=== PATIENT | female | born 1980 | race American Indian/Alaskan Native ===

== ENCOUNTER 2016-12-24 06:03 | Day surgery (SDC) | payer OTHER ==
[2016-12-16 15:44] LABS: Bilirubin,Urine NEG (Negative); Blood,Urine LG (Negative); Ketones,Urine NEG (Negative); Leukocyte Esterase,Urine TR (Negative); Mucus,Urine 3+ /HPF; Nitrite,Urine NEG (Negative); Urobilinogen,Urine < 2.0 mg/dL (<2.0)
[2016-12-16 15:45] LABS: RBC,Urine > 182.0 /HPF (0.0-6.0)
[2016-12-16 15:51] LABS: Alanine Aminotransferase 19 units/L (7-56); Albumin 3.9 g/dL (3.9-5); Albumin/Globulin Ratio 1.2 %; Alkaline Phosphatase 54 units/L (35-129); Anion Gap 18 mmol/L; BUN/Creatinine Ratio 13.33; Basophils % (Auto) 0.4 % (0.0-1.8); Blood Urea Nitrogen 8 mg/dL (7-17); Calcium 9.1 mg/dL (8.4-10.2); Carbon Dioxide 25 mmol/L (22-30); Chloride 103.3 mmol/L (98-107); Eosinophils % (Auto) 0.3 % (0.0-4.3); Glucose 77 mg/dL (65-100); Hematocrit 37.2 % (30.3-42.9); Hemoglobin 12.2 gm/dl (10.1-14.3); Mean Corpuscular HGB Conc 33 % (30-34); Mean Corpuscular Hemoglobin 28 pg (28-32); Mean Corpuscular Volume 85 fl (79-97); Platelet Count 225 K/mm3 (140-440); Red Blood Count 4.36 M/mm3 (3.65-5.03); Red Cell Distribution Width 15.8 % (13.2-15.2); Sodium 142 mmol/L (137-145); Total Protein 7.2 g/dL (6.3-8.2); White Blood Count 5.5 K/mm3 (4.5-11.0)
[2016-12-24] MEDS ORDERED: ANCEF/STERILE WATER 2 GM/20 ML IV NR (07:00)
[2016-12-24] MEDS ORDERED: NACL BACTERIOSTATIC INFILTRATI ONE (07:02)
--- NOTE | 2016-12-24 07:15 | Anesthesia Day of Surgery ---
Anesthesia Day of Surgery - Day of Surgery Patient Examined: Yes Patient H&P Reviewed: Yes Patient is NPO: Yes
--- NOTE | 2016-12-24 07:15 | Anesthesia Consultation ---
Anesthesia Consult and Med Hx Date of service: 12/24/16 - Airway Anesthetic Teeth Evaluation: Good ROM Head & Neck: Adequate Mental/Hyoid Distance: Adequate Mallampati Class: Class II Intubation Access Assessment: Probably Good - Pulmonary Exam CTA: Yes - Cardiac Exam Cardiac Exam: RRR - Pre-Operative Health Status ASA Pre-Surgery Classification: ASA2 Proposed Anesthetic Plan: General - Pulmonary Hx Respiratory Symptoms: Yes (history of PE in 2013) Hx Sleep Apnea: Yes (Uses cpap) - Cardiovascular System Hx Hypertension: No - Central Nervous System Hx Psychiatric Problems: No - Gastrointestinal Hx Gastroesophageal Reflux Disease: Yes - Hematic Hx Anemia: Yes - Other Systems Hx Alcohol Use: Yes (occas) Hx Substance Use: No Hx Cancer: No
[2016-12-24] MEDS ORDERED: SUBLIMAZE ONE (07:18)
[2016-12-24] MEDS ORDERED: DIPRIVAN 10 MG/ML IV ONE (07:18)
[2016-12-24] MEDS ORDERED: XYLOCAINE MPF 2% ONE (07:18)
[2016-12-24] MEDS ORDERED: SILVER NITRATE TP ONE (07:23)
[2016-12-24] MEDS: LACTATED RINGERS 1,000 ML IV SCH ×2 (07:47→10:22)
[2016-12-24] MEDS ORDERED: PERCOCET 5/325 PO PRN (08:00)
[2016-12-24] MEDS ORDERED: PEPCID PO NR (08:00)
[2016-12-24] MEDS ORDERED: VERSED IV NR (08:00)
[2016-12-24] MEDS ORDERED: NACL 0.9% IR ONE (08:30)
[2016-12-24] MEDS ORDERED: MONSEL'S TP ONE ×2 (08:45→08:46)
[2016-12-24] MEDS ORDERED: TORADOL ONE (09:06)
--- NOTE | 2016-12-24 09:10 | Short Stay Summary ---
Short Stay Documentation Date of service: 12/24/16 - History H&P: obtained from office - Allergies and Medications Current Medications: Allergies No Known Allergies Allergy (Verified 12/24/16 06:37) Home Medications Medication Instructions Recorded Confirmed Last Taken Type Omeprazole (Nf) [PriLOSEC (Nf)] 40 mg PO PRN PRN 07/28/16 12/24/16 2 Weeks Ago History Rivaroxaban [Xarelto] 20 mg PO DAILY 07/28/16 12/24/16 12/21/16 History Active Medications Famotidine (Pepcid) 20 mg PO PREOP NR Stop: 12/24/16 14:00 Last Admin: 12/24/16 07:46 Dose: 20 mg Hydromorphone HCl (Dilaudid) 0.5 mg IV Q10MIN PRN PRN Reason: Pain , Severe (7-10) Stop: 12/24/16 15:00 Lactated Ringer's (Lactated Ringers) 1,000 mls @ 100 mls/hr IV DIRECT RIRI Last Admin: 12/24/16 07:47 Dose: 100 mls/hr Midazolam HCl (Versed) 2 mg IV PREOP NR Stop: 12/24/16 23:59 Last Admin: 12/24/16 07:50 Dose: 2 mg Oxycodone/Acetaminophen (Percocet 5/325) 1 tab PO ONCE PRN PRN Reason: Pain, Moderate (4-6) Stop: 12/24/16 15:00 - Brief post op/procedure progress note Date of procedure: 12/24/16 Pre-op diagnosis: menstrual-induced anemia, AUB, dysmennorhea Post-op diagnosis: same Procedure: eua, hysteroscopy, D&C, novasure endometrial ablation Anesthesia: GETA Findings: 10 cm uterus, normal cavity, bilateral ostia visualized, proliferative appearing endometrium Surgeon: SALONI SAMAYOA Estimated blood loss: minimal Pathology: list (endometrial currettings) Specimen disposition: to lab Condition: stable - Disposition Condition at discharge: Good Disposition: DC-01 TO HOME OR SELFCARE Short Stay Discharge Plan Follow up with: ORTEGA KAN [employer] SELECTOR [Primary Care Provider] - 7 Days
[2016-12-24] MEDS: DILAUDID IV PRN ×2 (09:50→10:10)
--- NOTE | 2016-12-24 10:19 | Post Anesthesia Evaluation ---
- Post Anesthesia Evaluation Patient Participated: Yes Airway Patent: Yes Stable Respiratory Function: Yes Nausea/Vomiting: No Temp > 96.8F: Yes Pain Manageable: Yes Adequeate Hydration: Yes Anesthesia Complications: No Block Receding Appropriately: Not Applicable Patient on Ventilator: No
--- NOTE | 2016-12-24 10:20 | Operative Report ---
PREOPERATIVE DIAGNOSES: 1. Menometrorrhagia. 2. Dysmenorrhea. 3. Completed fertility. POSTOPERATIVE DIAGNOSES: 1. Menometrorrhagia. 2. Dysmenorrhea. 3. Completed fertility. PROCEDURE: EUA, hysteroscopy, D and C., NovaSure ablation. ANESTHESIA: General. SURGEON: Joi Wylie MD APPLICATION SOFTWARE ENGINEER: None. ESTIMATED BLOOD LOSS: Minimal. SPECIMEN: Endometrial curettings (sent to lab). Please make a note that the NovaSure rep was present for the entire case. INDICATIONS: The patient is a 36-year-old -[place]yp[place] female with abnormal uterine bleeding associated with iron deficiency anemia, pelvic pain, dysmenorrhea, dyspareunia, refractory to medical management. She has completed childbearing and desires an endometrial ablation. She is being brought to the OR today for an EUA, hysteroscopy, D and C, NovaSure endometrial ablation. DESCRIPTION OF PROCEDURE: The patient brought to the operating room where general anesthesia was administered without difficulty. She was prepared and draped in usual sterile fashion, positioned in dorsal lithotomy position. Eaton catheter was placed in the bladder. A speculum was placed in the vagina. A single tooth tenaculum was applied to the anterior lip of the cervix. The uterus sounded to 10 cm. The cervix was gently dilated to 25 mm. Hysteroscopy was performed with the findings noted above. She had a normal appearing uterus with proliferative appearing endometrium. Her bilateral tubal ostia were visualized. There were no masses noted. The cervical length was noted to be approximately 4. The other dimensions noted were cavity with a 3.7, power 125 W, cavity length was 6.0. The NovaSure was placed in the uterus per the chaplain's instructions and activated accordingly with a treatment time of 1.13 seconds. The cavity was noted to be intact, with no perforation prior to the procedure. There were no complications. [facility]# [id number] STEFANY/LO
[2016-12-24] MEDS ORDERED: ZOFRAN ONE (10:25)
[2016-12-24] MEDS ORDERED: DECADRON ONE (10:25)
[2016-12-24 11:25] VITALS: BP 117/73
== END 2016-12-24 12:12 | disposition home or self-care (01) ==
LOC: OR 06:03
PROVIDERS: ATTEND Obstetrics & Gynecology Gynecology
DX: N92.1 Excessive and frequent menstruation with irregular cycle (principal); N94.6 Dysmenorrhea, unspecified; K21.9 Gastro-esophageal reflux disease without esophagitis; D64.9 Anemia, unspecified; G47.33 Obstructive sleep apnea (adult) (pediatric); Z72.89 Other problems related to lifestyle; Z86.711 Personal history of pulmonary embolism; Z87.442 Personal history of urinary calculi; Z79.899 Other long term (current) drug therapy; Z98.51 Tubal ligation status; Z82.49 Family history of ischemic heart disease and other diseases of the circulatory system; Z83.3 Family history of diabetes mellitus; Z80.3 Family history of malignant neoplasm of breast
CPT/HCPCS: 36415; 58563; 80053; 81001; 81025; 85025; 86850; 86900; 86901; 87086; 88305; A4217; J0690; J1100; J1170; J1885; J2250; J2405; J2704; J3010; J7120

== ENCOUNTER 2017-06-16 08:24 | Observation (INO) | payer OTHER ==
[2017-06-14 12:41] LABS: Basophils % (Auto) 0.5 % (0.0-1.8); Eosinophils % (Auto) 0.5 % (0.0-4.3); Hematocrit 37.6 % (30.3-42.9); Hemoglobin 12.5 gm/dl (10.1-14.3); Mean Corpuscular HGB Conc 33 % (30-34); Mean Corpuscular Hemoglobin 28 pg (28-32); Mean Corpuscular Volume 83 fl (79-97); Platelet Count 213 K/mm3 (140-440); Red Blood Count 4.52 M/mm3 (3.65-5.03); Red Cell Distribution Width 14.6 % (13.2-15.2); White Blood Count 4.3 K/mm3 (4.5-11.0)
--- NOTE | 2017-06-14 13:42 | Anesthesia Consultation ---
Anesthesia Consult and Med Hx Date of service: 06/14/17 - Airway Anesthetic Teeth Evaluation: Good ROM Head & Neck: Adequate Mental/Hyoid Distance: Adequate Mallampati Class: Class II Intubation Access Assessment: Probably Good - Pulmonary Exam CTA: Yes - Cardiac Exam Cardiac Exam: RRR - Pre-Operative Health Status ASA Pre-Surgery Classification: ASA2 Proposed Anesthetic Plan: General Nerve Block: tap - Pulmonary Hx Respiratory Symptoms: Yes (history of PE in 2013, ON XARELTO, HOLDING X 2 DAYS) Hx Sleep Apnea: Yes - Central Nervous System Hx Psychiatric Problems: No - Gastrointestinal Hx Gastroesophageal Reflux Disease: Yes - Hematic Hx Anemia: Yes - Other Systems Hx Alcohol Use: Yes (occas) Hx Cancer: No Hx Obesity: Yes
--- NOTE | 2017-06-15 22:45 | History and Physical Report ---
History of Present Illness Date of examination: 06/15/17 Date of admission: 06/16/2017 Chief complaint: dysfunctional uterine bleeding History of present illness: 37y/o with dysfunctional uterine bleeding. Endometrial biopsy results were negative. Two small hypoechoic lesions were seen in the myometrium. The patient complains of worsening of her vaginal bleeding and report pelvic pain. She has elected for surgical management. Patient has been reassessed/reevaluated/re-examined. H&P has been reviewed. No interval changes. Past History Past Medical History: GERD, other (pulmonary embolism) Past Surgical History: D&C, other (tubal ligation; Novasure; wrist surgery) Social history: single - Obstetrical History : 3 Para: 2 Number of Pregnancies: 0 Spontaneous Abortions: 1 Induced : 0 Number of Living Children: 2 Medications and Allergies Allergies Allergy/AdvReac Type Severity Reaction Status Date / Time latex AdvReac Intermediate Itching Verified 06/16/17 09:37 Home Medications Medication Instructions Recorded Confirmed Last Taken Type Omeprazole (Nf) [PriLOSEC (Nf)] 40 mg PO PRN PRN 07/28/16 06/11/17 2 Weeks Ago History ~12/10/16 Rivaroxaban [Xarelto] 20 mg PO DAILY 07/28/16 06/16/17 06/12/17 History Active Meds: Active Medications Celecoxib (Celebrex) 200 mg PO PREOP NR Stop: 06/16/17 23:00 Famotidine (Pepcid) 20 mg PO PREOP NR Stop: 07/07/17 23:59 Fentanyl (Sublimaze) 100 mcg IV ONCE NR Stop: 06/16/17 23:59 Gabapentin (Neurontin) 600 mg PO PREOP NR Stop: 06/16/17 23:59 Sodium Chloride (Nacl 0.9% 1000 Ml) 1,000 mls @ 75 mls/hr IV DIRECT RIRI Midazolam HCl (Versed) 2 mg IV PREOP NR Stop: 06/16/17 23:59 Scopolamine (Transderm-Scop) 1 each TD PREOP NR Stop: 06/19/17 05:59 Review of Systems All systems: negative Genitourinary: vaginal bleeding, pelvic pain - Vital Signs Vital signs: Vital Signs Temp Pulse Resp BP 98.5 F 78 16 130/80 06/14/17 12:05 06/14/17 12:05 06/14/17 12:05 06/14/17 12:05 Temp Pulse Resp BP Pulse Ox 98.5 F 78 16 130/80 06/14/17 12:05 06/14/17 12:05 06/14/17 12:05 06/14/17 12:05 - Physical Exam Breasts: Positive: deferred Cardiovascular: Regular rate Lungs: Positive: Clear to auscultation Abdomen: Positive: normal appearance Results Result Diagrams: 06/14/17 12:15 All other labs normal. Assessment and Plan - Patient Problems (1) Menorrhagia Current Visit: Yes Status: Acute Plan to address problem: scheduled for a robotic hysterectomy (2) Dysmenorrhea Current Visit: Yes Status: Acute
[~2017-06-16 08:24] MED LIST: ANCEF/STERILE WATER 2 GM/20 ML 2 GM/20 ML SYRINGE IV SCH; CALCIUM CHLORIDE IV ONE; GELFOAM POWDER 1GM MM ONE; NACL 0.9% 1000 ML 1,000 ML IV SCH; NEOSPORIN GU IR ONE; NEURONTIN PO NR; PEPCID PO NR; SUBLIMAZE IV NR; THROMBIN (BOVINE) TP ONE; TRANSDERM-SCOP TD NR; VERSED IV NR
[2017-06-16] MEDS ORDERED: NACL BACTERIOSTATIC INFILTRATI ONE (09:48)
[2017-06-16] MEDS ORDERED: XYLOCAINE 1% 20 mL INFILTRATI ONE (10:00)
[2017-06-16] MEDS ORDERED: DECADRON IV ONE (10:30)
--- NOTE | 2017-06-16 10:42 | Anesthesia Day of Surgery ---
Anesthesia Day of Surgery - Day of Surgery Patient Examined: Yes Patient H&P Reviewed: Yes Patient is NPO: Yes
[2017-06-16] MEDS ORDERED: ANCEF/STERILE WATER 2 GM/20 ML 2 GM/20 ML SYRINGE IV NR (11:00)
[2017-06-16] MEDS ORDERED: DIPRIVAN 10 MG/ML IV ONE (11:05)
[2017-06-16] MEDS ORDERED: DILAUDID ONE ×2 (11:05→13:53)
[2017-06-16] MEDS ORDERED: XYLOCAINE MPF 2% ONE (11:06)
[2017-06-16] MEDS ORDERED: ZEMURON IV ONE (12:13)
[2017-06-16] MEDS ORDERED: NACL 0.9% 1000 ML 1,000 ML ONE (12:13)
[2017-06-16] MEDS ORDERED: ANCEF ONE (12:36)
[2017-06-16] MEDS ORDERED: ROBINUL ONE (12:48)
[2017-06-16] MEDS ORDERED: NEOSTIGMINE ONE (12:49)
[2017-06-16] MEDS ORDERED: NACL 0.9% IR ONE ×2 (12:53)
[2017-06-16] MEDS ORDERED: THROMBIN (BOVINE) TP ONE (12:54)
[2017-06-16] MEDS ORDERED: NEOSPORIN GU IR ONE (12:54)
[2017-06-16] MEDS ORDERED: GELFOAM POWDER 1GM MM ONE (12:54)
[2017-06-16] MEDS ORDERED: TYLENOL PO PRN (13:08)
[2017-06-16] MEDS ORDERED: MOTRIN PO PRN (13:08)
[2017-06-16] MEDS ORDERED: ZOFRAN IV PRN (13:08)
[2017-06-16] MEDS ORDERED: PERCOCET 5/325 PO PRN (13:08)
[2017-06-16] MEDS ORDERED: NARCAN 0.4 MG/1 ML IV PRN (13:08)
--- NOTE | 2017-06-16 13:13 | Operative Report ---
Operative Report Operative Report: Date of surgery: 06/16/2017 Preoperative diagnoses: Dysfunctional uterine bleeding; dysmenorrhea Postoperative diagnoses: Same as above Procedure: Robotic hysterectomy Surgeon: Michaela Ness M.D. Diving Judge:Caesar Che Anesthesia: Gen. endotracheal anesthesia Estimated blood loss: Less than 100 mL Pathology: Cervix, uterus, bilateral tubes Indication: 37-year-old 012 with dysfunctional uterine bleeding and dysmenorrhea. The patient failed medical management and elected to undergo definitive surgical management. Procedure: The patient was taken to the operating room and given general endotracheal anesthesia without complication. She is prepped and draped in a normal sterile fashion. A bivalve speculum was placed in the patient's vagina and a single- tooth tenaculum placed on the anterior lip of the cervix. The uterus was sounded with the uterine sound. A Eight19 uterine manipulator was placed in the bivalve speculum was then removed. Attention was then turned to the patient's abdomen where a millimeter supra umbilical skin incision was then made. A Veress needle was placed and peritoneal entry was verified water-filled syringe. Insufflation of the peritoneal cavity was performed with CO2 gas. The 12 mm trocar was then placed under direct visualization. An additional 8 mm trocar was placed on the patient's left and right lateral side just opposite of the supraumbilical trocar. An additional 5 mm right lateral trocar was then placed as the accessory port. The patient was then placed in steep Trendelenburg. The da Corina robot was then engaged. A fenestrated forcep was placed in arm 2 and a vessel sealer was placed in arm 1. General survey of the patient's abdomen and pelvis revealed a mildly enlarged uterus with normal tubes and ovaries bilaterally consistent with a prior tubal ligation. The surgeon then transferred to the surgical console. The mesosalpinx was then isolated on the right. The vessel sealer was used to coagulate the mesosalpinx which was then transected. The tube was transected from the ovary. The tubo- ovarian ligament was then coagulated and transected. The round ligament was then coagulated and transected also. The vesicouterine peritoneum was then entered from the patient's right side. The uterine vessels were then coagulated with the vessel sealer. The vessels were then transected . Attention was then turned to the patient's left side where the tubo-ovarian ligament and mesosalpinx were again isolated coagulated and transected. The vesical peritoneum was then entered from the left and joined in the midline. Peritoneum was reflected off of the lower uterine segment. Uterine vessels were then coagulated and then transected. The blood supply to the uterus was adequately contained, a posterior colpotomy was made. The V care ring was visualized. Posterior colpotomy was created with the monopolar scissors. The incision was continued circumferentially until anterior colpotomy was made. The cervix and uterus were amputated from the vaginal cuff. The uterus was then removed along with the tubes bilaterally through the vagina and a warm laparotomy sponge was placed and maintain the pneumoperitoneum. The vaginal cuff was then closed in a running fashion with V lock suture. Irrigation of the pelvis was performed. Gelfoam with thrombin was applied to the incision. Interceed was also placed on the vaginal cuff. The supraumbilical 12 mm trocar site was closed with the Geraldo Khan device. The skin was then reapproximated with 4-0 Monocryl. The tissue was sent to pathology which included the cervix and uterus. The patient was then successfully extubated. She was then taken to the recovery room in stable condition. All sponge laps and needle counts were correct x2.
[2017-06-16] MEDS: DILAUDID IV PRN ×2 (13:50→14:00)
[2017-06-16] MEDS ORDERED: NACL 0.9% 1000 ML 1,000 ML IV SCH (14:00)
[2017-06-16] MEDS ORDERED: D5LR 1,000 ML IV SCH (14:00)
[2017-06-16] MEDS ORDERED: MORPHINE PCA 30MG/30ML IV SCH (14:00)
[2017-06-16] MEDS: TORADOL IV SCH (21:05)
[2017-06-17 04:09] LABS: Hematocrit 34.7 % (30.3-42.9); Hemoglobin 11.5 gm/dl (10.1-14.3)
[2017-06-17] MEDS: TORADOL IV SCH ×2 (06:30→10:46)
--- NOTE | 2017-06-17 08:36 | Progress Note ---
Assessment and Plan - Patient Problems (1) Menorrhagia Current Visit: Yes Status: Acute Plan to address problem: Routine postoperative care Advanced diet as tolerated Discharge home once meeting discharge criteria (2) Dysmenorrhea Current Visit: Yes Status: Acute Subjective - Subjective Date of service: 06/17/17 Interval history: The patient reports having mild gas pain. She is tolerating a clear diet without complication. She has had minimal ambulation. Patient reports: appetite normal, pain well controlled Objective - Vital Signs Latest vital signs: Vital Signs Temp Pulse Resp BP BP Pulse Ox 06/17/17 04:10 98.5 F 75 18 112/62 06/17/17 00:00 98.0 F 72 18 111/66 06/16/17 23:39 70 18 98 06/16/17 23:26 98.0 F 74 18 120/77 06/16/17 23:00 98 06/16/17 17:08 98.2 F 71 18 135/86 98 06/16/17 15:10 98.2 F 66 16 111/64 99 06/16/17 14:55 98.2 F 66 16 111/64 99 06/16/17 14:30 97.4 F L 69 15 103/75 98 06/16/17 14:20 14 06/16/17 14:15 69 15 104/60 98 06/16/17 14:00 75 19 109/64 97 06/16/17 13:45 72 20 105/53 97 06/16/17 13:40 79 16 102/59 95 06/16/17 13:35 81 18 102/66 96 06/16/17 13:29 97.6 F 75 15 105/58 96 06/16/17 11:15 77 20 118/74 100 06/16/17 11:00 74 22 116/72 100 06/16/17 10:55 74 23 118/74 100 06/16/17 10:50 77 20 114/72 100 06/16/17 10:45 80 17 117/76 100 06/16/17 10:40 75 19 120/70 100 06/16/17 10:35 74 20 122/72 100 06/16/17 10:30 75 19 120/73 100 06/16/17 10:25 82 20 114/66 100 06/16/17 10:20 84 18 118/65 100 06/16/17 10:15 77 15 126/78 100 06/16/17 10:14 90 18 119/75 100 06/16/17 10:00 98 F 94 H 20 127/72 98 Intake and Output 06/16/17 06/17/17 06/17/17 22:59 06:59 14:59 Intake Total 480 Output Total 1000 1300 Balance -1000 -820 Intake: Oral 480 Output: Urine 1000 1300 Indwelling Catheter 1000 1300 Other: Total, Intake Amount 240 Total, Output Amount 700 400 Voiding Method Indwelling Catheter Toilet - Exam Abdomen: Present: normal appearance Incision: Present: normal, dry
--- NOTE | 2017-06-17 08:38 | Discharge Summary ---
Providers - Providers Date of Admission: 06/16/17 13:08 Date of discharge: 06/17/17 Attending physician: MICHAEL URBAN Primary care physician: ORTEGA KAN Hospitalization Reason for admission: other (dysfunctional uterine bleeding) Procedure: other (robotic hysterectomy and bilateral salpingectomy) Incision: normal, dry Discharge diagnosis: other (dysfunctional uterine bleeding) Hospital course: The patient was admitted the day of surgery and underwent a robotic hysterectomy without bilateral salpingectomy. Please see operative note for details of surgery. Postoperative course was uneventful. Condition at discharge: Good Disposition: DC-01 TO HOME OR SELFCARE - Discharge Diagnoses (1) Menorrhagia Status: Acute (2) Dysmenorrhea Status: Acute Plan - Discharge Medications Prescriptions: Ibuprofen [Motrin] 800 mg PO Q8HR PRN #60 tablet PRN Reason: Pain Oxycodone HCl/Acetaminophen [Percocet 7.5/325 mg] 1 each PO Q6HR PRN #45 tablet PRN Reason: Pain - Provider Discharge Summary Activity: no sex for 6 weeks, no heavy lifting 4 weeks, no strenuous exercise Diet: routine Instructions: routine Additional instructions: [] Smoking cessation referral if applicable(refer to patient education folder for contact #) [] Refer to [facility]'s [facility] Booklet Call your doctor immediately for: * Fever > 100.5 * Heavy vaginal bleeding ( >1 pad per hour) * Severe persistent headache * Shortness of breath * Reddened, hot, painful area to leg or breast * Drainage or odor from incision. * Keep incision clean and dry at all times and follow doctor's instructions regarding bathing/showering Follow-up in 4 weeks for postoperative checkup - Follow up plan
[2017-06-17 18:55] VITALS: BP 111/62
== END 2017-06-17 18:45 | disposition home or self-care (01) ==
LOC: OR 08:24 → OB 13:08
PROVIDERS: ADMIT Obstetrics & Gynecology; ATTEND Obstetrics & Gynecology
DX: N93.8 Other specified abnormal uterine and vaginal bleeding (principal); N94.6 Dysmenorrhea, unspecified; K21.9 Gastro-esophageal reflux disease without esophagitis; N92.0 Excessive and frequent menstruation with regular cycle
CPT/HCPCS: 36415; 58571; 64450; 84703; 85014; 85018; 85025; 86850; 86900; 86901; 88307; 94660; 94760; 96374; 96375; 96376; A4217; A4649; C1765; G0378; J0690; J1100; J1170; J1885; J2250; J2270; J2704; J2710; J3010; J7030; J7121; S2900